=== PATIENT | male | born 1965 | race Caucasian/White ===

== ENCOUNTER 2017-03-30 14:08 | Emergency (ER) | payer BC ==
[~2017-03-30] VITALS: Ht 157.5 cm; Wt 86.5 kg
[~2017-03-30 14:08] MED LIST: AMLO-147 PO; IBUP-1542 PO; LOSA50TA6 PO
[2017-03-30 14:15] VITALS: Ht 157.5 cm; Wt 86.5 kg
--- NOTE | 2017-03-30 19:01 | ERD ---
ER Documentation Chief Complaint Chief Complaint DIZZINESS SINCE 0900 HPI This patient is a 51-year-old male with past medical history of hypertension already taking losartan and amlodipine presenting to the emergency department with complaints of dizziness which he felt around 9 AM today. He states he drinks 4 beers last night and then went to sleep and woke up this morning feeling dizzy. He then took his blood pressure medication and shortly thereafter he began feeling improved. He ate some breakfast and some lunch and then his dizziness completely resolved. He denies all symptoms currently. He states he came because he was worried that his blood pressure may be elevated and he did not take it at home today. He denies visual changes, headache, chest pain, shortness of breath, current dizziness, syncope, or other symptoms currently. ROS All systems reviewed and are negative except as per history of present illness. Medications Home Meds Active Scripts Ibuprofen* (Motrin*) 600 Mg Tab, 600 MG PO Q6H Y for PAIN AND OR ELEVATED TEMP, #30 TAB Prov:SOLITARIO HINSON MD 05/27/16 Reported Medications Amlodipine Besylate* (Amlodipine Besylate*) 10 Mg Tablet, 10 MG PO DAILY, #30 TAB 03/20/16 Losartan Potassium* (Losartan Potassium*) 50 Mg Tablet, 50 MG PO DAILY, TAB 03/20/16 Allergies Allergies: Coded Allergies: No Known Allergy (Unverified , 05/27/16) PMhx/Soc History of Surgery: No Anesthesia Reaction: No Hx Neurological Disorder: No Hx Respiratory Disorders: No Hx Cardiac Disorders: Yes (HTN) Hx Psychiatric Problems: No Hx Miscellaneous Medical Probl: No Hx Alcohol Use: Yes Hx Substance Use: No Hx Tobacco Use: Yes Smoking Status: Unknown if ever smoked Physical Exam Vitals Vital Signs Date Time Temp Pulse Resp B/P Pulse Ox O2 Delivery O2 Flow Rate FiO2 03/30/17 14:15 98.2 90 18 152/93 99 Physical Exam Const: Nontoxic, well-appearing male in no acute distress. Head: Atraumatic Eyes: Normal Conjunctiva ENT: Normal External Ears, Nose and Mouth. Neck: Full range of motion..~ No meningismus. Resp: Clear to auscultation bilaterally Cardio: Regular rate and rhythm, no murmurs Skin: No petechiae or rashes Ext: No cyanosis, or edema Neur: Awake and alert Psych: Normal Mood and Affect Procedures/MDM 51-year-old male presents to the emergency department with complaints of dizziness which he felt this morning. The patient is currently asymptomatic. Discussion with the patient about possible causes of his dizziness. He states he has experienced this in the past and his blood pressure is high. He is already on medication by his primary care physician for his hypertension. Because his exam is essentially normal and he feels no symptoms currently, I feel that it was appropriate to obtain an EKG and as long as there were no significant acute abnormalities, he was appropriate for discharge and follow-up with his primary care physician. The patient is to return immediately for any new or worsening symptoms and he is to continue taking all of his blood pressure medication exactly as prescribed by his primary care physician. There is no evidence of hypertension urgency or emergency and there is no evidence of endorgan damage. The patient was comfortable with discharge and follow-up plan. EKG: Reviewed with attending emergency physician, Dr. Jimenez Salazar Rate/Rhythm: Normal sinus rhythm with a rate of 97 bpm. QRS, ST, T-waves: No changes consistent w/ acute ischemia Impression: No evidence of ischemia or arrhythmia Departure Diagnosis: Primary Impression: Hypertension Hypertension type: unspecified Qualified Code: I10 - Hypertension, unspecified type Additional Impression: Physically well but worried Condition: Fair Patient Instructions: Hypertension, Established Referrals: [facility] YOU HAVE RECEIVED A MEDICAL SCREENING EXAM AND THE RESULTS INDICATE THAT YOU DO NOT HAVE A CONDITION THAT REQUIRES URGENT TREATMENT IN THE EMERGENCY DEPARTMENT. FURTHER EVALUATION AND TREATMENT OF YOUR CONDITION CAN WAIT UNTIL YOU ARE SEEN IN YOUR DOCTORS OFFICE WITHIN THE NEXT 1-2 DAYS. IT IS YOUR RESPONSIBILITY TO MAKE AN APPOINTMENT FOR FOLOW-UP CARE. IF YOU HAVE A PRIMARY DOCTOR --you should call your primary doctor and schedule an appointment IF YOU DO NOT HAVE A PRIMARY DOCTOR YOU CAN CALL OUR PHYSICIAN REFERRAL HOTLINE AT IF YOU CAN NOT AFFORD TO SEE A PHYSICIAN YOU CAN CHOSE FROM THE FOLLOWING [facility] [address] [facility] [address] [facility] [address] [facility] [address] [facility]. [facility] [address] [facility]. [facility] [address] Additional Instructions: Call your primary care doctor TOMORROW for an appointment during the next 1-2 days.See the doctor sooner or return here if your condition worsens before your appointment time. LEONORA ALCALA PA-C Mar 30, 2017 19:01
== END 2017-03-30 15:43 | disposition home or self-care (01) ==
LOC: FTE 14:08
DX: I10 Essential (primary) hypertension (principal); Z87.891 Personal history of nicotine dependence
CPT/HCPCS: 99282

== ENCOUNTER 2017-04-03 08:58 | Emergency (ER) | payer BC ==
[~2017-04-03] VITALS: Ht 172.7 cm; Wt 85.0 kg
[2017-04-03 09:01] VITALS: Ht 172.7 cm; Wt 85.0 kg
[2017-04-03] MEDS ORDERED: MECLIZINE 12.5 MG TAB PO ONE (10:00)
--- NOTE | 2017-04-03 10:16 | RADRPT ---
PROCEDURE: Chest x-ray CLINICAL INDICATION: Dizziness TECHNIQUE: Chest single view COMPARISON: 03/20/2016 FINDINGS: The heart is normal in size. The pulmonary vessels are normal in caliber. The lungs are clear. Th e costophrenic angles are sharp. The visualized bony thorax is unremarkable. IMPRESSION: No acute cardiopulmonary disease. RPTAT: HH .Jayro Radford MD, Date Time Electronically viewed and signed by .Jayro Radford MD, MD on 04/03/2017 10:16 .W/
[2017-04-03 10:23] LABS: BASOPHILS % 0.6 % (0.0-2.0); EOSINOPHILS # 0.1 10^3/ul (0.0-0.5); EOSINOPHILS % 1.4 % (0.0-7.0); HEMATOCRIT 40.3 % (42.0-52.0); HEMOGLOBIN 13.5 g/dl (14.0-18.0); LYMPHOCYTES # 1.1 10^3/ul (0.8-2.9); LYMPHOCYTES % 15.2 % (15.0-51.0); MEAN CORPUSCULAR HEMOGLOBIN 29.3 pg (29.0-33.0); MEAN CORPUSCULAR HGB CONC 33.5 g/dl (32.0-37.0); MEAN CORPUSCULAR VOLUME 87.6 fl (82.0-101.0); MEAN PLATELET VOLUME 10.6 fl (7.4-10.4); MONOCYTE # 0.4 10^3/ul (0.3-0.9); MONOCYTES % 5.2 % (0.0-11.0); NEUTROPHIL # 5.6 10^3/ul (1.6-7.5); NEUTROPHILS % 77.3 % (39.0-77.0); PLATELET COUNT 316 10^3/UL (140-415); RED CELL DISTRIBUTION WIDTH 12.7 % (11.5-14.5); WHITE BLOOD COUNT 7.2 10^3/ul (4.8-10.8)
[2017-04-03 10:35] LABS: INR 0.99; PROTIME 13.1 Sec (12.2-14.2)
[2017-04-03 10:38] LABS: ADD UMIC YES; ANION GAP 14 (8-16); BLOOD UREA NITROGEN 16 mg/dl (7-20); CALCIUM 9.2 mg/dl (8.4-10.2); CARBON DIOXIDE 30 mmol/L (21-31); CHLORIDE 101 mmol/L (97-110); CREATININE 0.92 mg/dl (0.61-1.24); GLUCOSE 102 mg/dl (70-220); POTASSIUM 4.1 mmol/L (3.5-5.1); SODIUM 141 mmol/L (135-144); UR ASCORBIC ACID NEGATIVE (NEGATIVE); UR BILIRUBIN (Dip) NEGATIVE (NEGATIVE); UR BLOOD (Dip) NEGATIVE (NEGATIVE); UR CLARITY CLEAR (CLEAR); UR COLOR STRAW (YELLOW); UR GLUCOSE (Dip) NEGATIVE (NEGATIVE); UR KETONES (Dip) NEGATIVE (NEGATIVE); UR LEUKOCYTE ESTERASE (Dip) TRACE Leu/ul (NEGATIVE); UR NITRITE (Dip) NEGATIVE (NEGATIVE); UR RBC 0 /HPF (0-5); UR SPECIFIC GRAVITY (Dip) 1.003 (1.003-1.030); UR TOTAL PROTEIN (Dip) NEGATIVE (NEGATIVE); UR UROBILINOGEN (Dip) NEGATIVE (NEGATIVE)
[2017-04-03 11:09] LABS: BARBITURATES Negative (NEGATIVE); BENZODIAZEPINES Negative (NEGATIVE); CANNABINOIDS Negative (NEGATIVE); COCAINE Negative (NEGATIVE); OPIATES Negative (NEGATIVE); TROPONIN-I < 0.012 ng/ml (0.00-0.12)
--- NOTE | 2017-04-03 11:22 | RADRPT ---
PROCEDURE: CT brain without contrast CLINICAL INDICATION: Vision changes, dizziness, difficulty ambulating TECHNIQUE: CT of the brain without contrast performed on a multidetector CT scanner, with multiplan ar reformats. One or more of the following dose reduction techniques were used: Automated exposure control, adjustment in mA and / or kV according to patient size, use of iterative reconstructive joe hnique. CTDIvol = 45 mGy; DLP = 630 mGy-cm. COMPARISON: None available FINDINGS: No acute intracranial hemorrhage is identified. No extra-axial fluid collection is seen. There is no mass effect. No midline shift is identified. The ventricles and sulci are mildly enlarged compatible with volume loss. There are minimal areas of hypodensity in the periventricular - deep white matter which are nonspeci fic but suggestive of chronic small vessel ischemic changes. Monique-white differentiation is preserve d. Calvarium and skull base are intact. Mastoid air cells and imaged paranasal sinuses grossly clear. IMPRESSION: 1. No acute intracranial pathology identified. 2. Mild volume loss, with minimal chronic small vessel ischemic changes. RPTAT: VV .Beny Borjas MD, MD Date Time Electronically viewed and signed by .Beny Borjas MD, on 04/03/2017 11:22 .O/
[2017-04-03] MEDS ORDERED: MECL12.574 PO (11:34)
--- NOTE | 2017-04-03 11:37 | ERD ---
ER Documentation Chief Complaint Chief Complaint dizziness x 4 days HPI Patient is a 51-year-old male with hypertension and high cholesterol who presents with dizziness. The dizziness started on Friday. He was seen in the ER for the same a few days ago and says "it just feels like my body feels dizzy ". He said it is worse with moving his head. He has no pain. He denies bleeding. Upon review of old medical records this is the patient's seventh visit to the ER since 2007. He does have a primary doctor. ROS All systems reviewed and are negative except as per history of present illness. Medications Home Meds Active Scripts Meclizine Hcl* (Antivert*) 12.5 Mg Tab, 25 MG PO Q6H Y for DIZZINESS, #20 TAB Prov:SOLITARIO HINSON MD 04/03/17 Ibuprofen* (Motrin*) 600 Mg Tab, 600 MG PO Q6H Y for PAIN AND OR ELEVATED TEMP, #30 TAB Prov:SOLITARIO HINSON MD 05/27/16 Reported Medications Amlodipine Besylate* (Amlodipine Besylate*) 10 Mg Tablet, 10 MG PO DAILY, #30 TAB 03/20/16 Losartan Potassium* (Losartan Potassium*) 50 Mg Tablet, 50 MG PO DAILY, TAB 03/20/16 Allergies Allergies: Coded Allergies: No Known Allergy (Unverified , 05/27/16) PMhx/Soc Medical and Surgical Hx: pt denies Medical Hx, pt denies Surgical Hx History of Surgery: No Anesthesia Reaction: No Hx Neurological Disorder: No Hx Respiratory Disorders: No Hx Cardiac Disorders: Yes (HTN, HYPERLIDEMIA ) Hx Psychiatric Problems: No Hx Miscellaneous Medical Probl: No Hx Alcohol Use: Yes Hx Substance Use: No Hx Tobacco Use: Yes Smoking Status: Current every day smoker FmHx Family History: No diabetes Physical Exam Vitals Vital Signs Date Time Temp Pulse Resp B/P Pulse Ox O2 Delivery O2 Flow Rate FiO2 04/03/17 11:58 98.6 77 18 125/84 99 Room Air 04/03/17 09:01 97.5 74 18 162/97 99 Physical Exam Const: No acute distress Head: Atraumatic Eyes: Normal Conjunctiva ENT: Normal External Ears, Nose and Mouth. Neck: Full range of motion..~ No meningismus. Resp: Clear to auscultation bilaterally Cardio: Regular rate and rhythm, no murmurs Abd: Soft, non tender, non distended. Normal bowel sounds Skin: No petechiae or rashes Back: No midline or flank tenderness Ext: No cyanosis, or edema Neur: Awake and alert, no slurred speech, cranial nerves II through XII are intact, strength is 5 out of 5 in all 4 extremities, no pronator drift Psych: Normal Mood and Affect Result Diagram: 04/03/17 1000 04/03/17 1000 Results 24 hrs Laboratory Tests Test 04/03/17 09:49 04/03/17 10:00 Bedside Glucose 99mg/dL White Blood Count 7.210^3/ul Red Blood Count 4.6010^6/ul Hemoglobin 13.5g/dl Hematocrit 40.3% Mean Corpuscular Volume 87.6fl Mean Corpuscular Hemoglobin 29.3pg Mean Corpuscular Hemoglobin Concent 33.5g/dl Red Cell Distribution Width 12.7% Platelet Count 34043^3/UL Mean Platelet Volume 10.6fl Neutrophils % 77.3% Lymphocytes % 15.2% Monocytes % 5.2% Eosinophils % 1.4% Basophils % 0.6% Nucleated Red Blood Cells % 0.0/100WBC Neutrophils # 5.610^3/ul Lymphocytes # 1.110^3/ul Monocytes # 0.410^3/ul Eosinophils # 0.110^3/ul Basophils # 0.010^3/ul Nucleated Red Blood Cells # 0.010^3/ul Prothrombin Time 13.1Sec Prothrombin Time Ratio 1.0 INR International Normalized Ratio 0.99 Activated Partial Thromboplast Time 34.0Sec Urine Color STRAW Urine Clarity CLEAR Urine pH 7.0 Urine Specific [place] 1.003 Urine Ketones NEGATIVEmg/dL Urine Nitrite NEGATIVEmg/dL Urine Bilirubin NEGATIVEmg/dL Urine Urobilinogen NEGATIVEmg/dL Urine Leukocyte Esterase TRACELeu/ul Urine Microscopic RBC 0/HPF Urine Microscopic WBC 13/HPF Urine Hemoglobin NEGATIVEmg/dL Urine Glucose NEGATIVEmg/dL Urine Total Protein NEGATIVEmg/dl Sodium Level 141mmol/L Potassium Level 4.1mmol/L Chloride Level 101mmol/L Carbon Dioxide Level 30mmol/L Anion Gap 14 Blood Urea Nitrogen 16mg/dl Creatinine 0.92mg/dl Glucose Level 102mg/dl Hemoglobin A1c 5.5% Calcium Level 9.2mg/dl Troponin I < 0.012ng/ml Urine Opiates Screen Negative Urine Barbiturates Negative Urine Amphetamines Screen Negative Urine Benzodiazepines Screen Negative Urine Cocaine Screen Negative Urine Cannabinoids Negative Current Medications Medications (Trade) Dose Ordered Sig/[place] Route PRN Reason Start Time Stop Time Status Last Admin Dose Admin Meclizine HCl (Antivert) 25 mg ONCE ONCE PO 04/03/17 10:00 04/03/17 10:02 DC 04/03/17 10:48 Procedures/MDM EKG read by me: Rate/Rhythm: Regular rate and rhythm at a rate of 66 Intervals: Normal Impression: No evidence of ischemia or arrhythmia CT brain shows no acute process per radiology. Smoking Cessation Therapy: Pt. was lectured for greater than 3 minutes on the health risks of continued smoking and the benefits of cessation. Patient is a 51-year-old male who presents with dizziness. At this point I doubt stroke or serious electrolyte abnormality. He has mild anemia with a hemoglobin of 13.5 but does not require transfusion. The patient will be discharged with a prescription for meclizine. I doubt intracranial hemorrhage, mass, or meningitis. The patient went to follow-up closely with his primary doctor within 24-48 hours. He can return sooner if symptoms worsen. Departure Diagnosis: Primary Impression: Dizziness Condition: Fair Patient Instructions: Dizziness, Unk Cause Referrals: Your doctor Additional Instructions: Call your primary care doctor TOMORROW for an appointment during the next 1-2 days.See the doctor sooner or return here if your condition worsens before your appointment time. SOLITARIO HINSON MD Apr 03, 2017 11:37
[2017-04-03 11:58] VITALS: BP 125/84; PULSE 77; RESP 18; TEMP 98.6
[2017-04-03] MEDS ORDERED: SITA100T8 PO (14:28)
[2017-04-03] MEDS ORDERED: ALLO100T PO (14:28)
== END 2017-04-03 11:58 | disposition home or self-care (01) ==
LOC: E/R 08:58
DX: R42 Dizziness and giddiness (principal); I10 Essential (primary) hypertension; F17.210 Nicotine dependence, cigarettes, uncomplicated; R07.9 Chest pain, unspecified
CPT/HCPCS: 36415; 70450; 71010; 80048; 80307; 81001; 82962; 83036; 84484; 85025; 85610; 85730; 93005

== ENCOUNTER 2019-02-14 22:19 | Emergency (ER) | payer BC ==
[~2019-02-14] VITALS: Ht 162.6 cm; Wt 88.0 kg
[~2019-02-14 22:19] MED LIST changes: +ALLO100T PO; -IBUP-1542 PO; -LOSA50TA6 PO; +MECL12.574 PO; +SITA100T11 PO
[2019-02-14 22:25] VITALS: Ht 162.6 cm; Wt 88.0 kg
[2019-02-14] MEDS ORDERED: SOD CHLORIDE 0.9% 1,000 ML IV STA (22:50)
[2019-02-14] MEDS ORDERED: LORAZEPAM 2 MG INJ IV ONE (23:00)
[2019-02-14 23:57] VITALS: BP 138/95; PULSE 89; RESP 18
== END 2019-02-15 | disposition home or self-care (01) ==
LOC: E/R 22:19
DX: I10 Essential (primary) hypertension (principal); F41.9 Anxiety disorder, unspecified; Z79.84 Long term (current) use of oral hypoglycemic drugs
CPT/HCPCS: 36415; 71045; 80053; 83690; 84484; 85025; 93005; 96374; 99285; J2060; J7030